=== PATIENT | male | born 1955 | race Caucasian/White ===

== ENCOUNTER 2017-07-16 12:44 | Emergency (ER) | payer OTHER ==
[2017-07-16] MEDS ORDERED: Acetaminophen/HYDROcodone 325-5 MG Tab ONE (14:00)
--- NOTE | 2017-07-16 14:19 | EDM.PDOC ---
ED HPI GENERAL MEDICAL PROBLEM - General Time Seen by Provider: 07/16/17 13:30 Source of Information: Reports: Patient History Limitations: Reports: No Limitations - History of Present Illness INITIAL COMMENTS - FREE TEXT/NARRATIVE: According to patient he claims he [place] he slipped on the ice and fell backwards and landed more so on his right shoulder. Since then he has been having pain in the right shoulder and hurts to move. No swelling or bruising of the shoulder. Pt is concerned as he has had rotator cuff repair done on his right shoulder in April of 2017 in [place]. No other injuries or open wounds. He does c/o of dull achy pain all around the shoulder, worse with movement. No other complaints Onset: Today Onset Date: 07/16/17 Onset Time: 11:00 Location: Reports: Upper Extremity, Right Quality: Reports: Ache Severity: Severe Improves with: Reports: None Worsens with: Reports: None Associated Symptoms: Denies: Confusion, Chest Pain, Fever/Chills, Nausea/ Vomiting, Rash, Shortness of Breath, Weakness - Related Data Allergies Allergy/AdvReac Type Severity Reaction Status Date / Time No Known Allergies Allergy Verified 07/16/17 14:11 ED ROS GENERAL - Review of Systems Review Of Systems: See Below Constitutional: Denies: Fever, Chills HEENT: Denies: Throat Pain, Throat Swelling Respiratory: Denies: Shortness of Breath, Cough, Sputum Cardiovascular: Denies: Chest Pain, Lightheadedness GI/Abdominal: Denies: Nausea, Vomiting Musculoskeletal: Reports: Shoulder Pain ( right), Joint Pain. Denies: Joint Swelling Skin: Denies: Bruising, Rash ED EXAM, GENERAL - Physical Exam Exam: See Below Exam Limited By: No Limitations General Appearance: Alert, WD/WN, Mild Distress Eye Exam: Bilateral Eye: EOMI, PERRL Ears: Normal External Exam, Normal Canal, Hearing Grossly Normal, Normal TMs Nose: Normal Inspection, Normal Mucosa, No Blood Throat/Mouth: Normal Inspection, Normal Lips, Normal Teeth, Normal Gums, Normal Oropharynx, Normal Voice, No Airway Compromise Head: Atraumatic, Normocephalic Neck: Normal Inspection, Supple, Non-Tender, Full Range of Motion Respiratory/Chest: No Respiratory Distress, Lungs Clear, Normal Breath Sounds, No Accessory Muscle Use, Chest Non-Tender Cardiovascular: Normal Peripheral Pulses, Regular Rate, Rhythm, No Edema, No Gallop, No JVD, No Murmur, No Rub Extremities: Normal Inspection, Other (Right shoulder: Pt does keep his arm on the side of the body and refuses to move. After reassurance, he is able to abduct his arm to about 30 degrees. Postive drop can test. He does have decent strenght in infraspiantus and subscpularis msucle. Defenite weakness or absent strength in supraspiantus muscle. tender over the suprspinatus muscle mass lateral. ) Neurological: Alert, Oriented, CN II-XII Intact Course - Vital Signs Text/Narrative:: Right shoulder Xray is negative for fracture of the shoulder and the joint complex appears normal. Pt reassured that there is no fracture, but cannot rule out supraspinatus tear. I have placed patient in the arm sling, which does make him comfortable. Offered pain injection, patient decline. I have advised cold compresses 3-4 times daily. Alternate motrin 800mg with vicodin 5/325 every 4 hrs for pain. rest the arm in arm sling. Advised to followup with his primary care provider or his orthopedist on tuesday for MRI of shoulder and further workup. - Orders/Labs/Meds Orders: Active Orders 24 hr Category Date Time Status Shoulder Comp Rt [CR] Stat Exams 07/16/17 Taken Departure - Departure Time of Disposition: 14:30 Disposition: Home, Self-Care 01 Condition: Fair Clinical Impression: Rotator cuff injury - Discharge Information Referrals: PCP,None [Primary Care Provider] - - Problem List & Annotations (1) Rotator cuff injury SNOMED Code(s): 514541889 Code(s): S46.009A - UNSP INJ MUSC/TEND THE ROTATOR CUFF OF UNSP SHOULDER, INIT Status: Acute Current Visit: Yes - Problem List Review Problem List Initiated/Reviewed/Updated: Yes - My Orders Last 24 Hours: My Active Orders 07/16/17 Shoulder Comp Rt [CR] Stat - Assessment/Plan Last 24 Hours: My Active Orders 07/16/17 Shoulder Comp Rt [CR] Stat Assessment:: Right rotator cuff injury Plan: Right shoulder Xray is negative for fracture of the shoulder and the joint complex appears normal. Pt reassured that there is no fracture, but cannot rule out supraspinatus tear. I have placed patient in the arm sling, which does make him comfortable. Offered pain injection, patient decline. I have advised cold compresses 3-4 times daily. Alternate motrin 800mg with vicodin 5/325 every 4 hrs for pain. rest the arm in arm sling. Advised to followup with his primary care provider or his orthopedist on tuesday for MRI of shoulder and further workup.
--- NOTE | 2017-07-17 03:43 | CR ---
DATE OF SERVICE: 07/16/2017 CLINICAL DATA: Pain RIGHT SHOULDER No priors. The patient is status post acromioplasty and distal clavicle resection. There are mild osteoarthritic changes of the glenohumeral joint. No acute fracture or dislocation. No focal lytic or blastic bone lesions. [id number] MTDD
== END 2017-07-16 14:15 | disposition home or self-care (01) ==
LOC: LB.ED 12:44
DX: S46.001A Unspecified injury of muscle(s) and tendon(s) of the rotator cuff of right shoulder, initial encounter (principal); W00.2XXA Other fall from one level to another due to ice and snow, initial encounter; Y92.828 Other wilderness area as the place of occurrence of the external cause
CPT/HCPCS: 73030; 99283; A9270